=== PATIENT | female | born 1980 | race Caucasian/White ===

== ENCOUNTER → 2019-08-05 | Outpatient (CLI) | payer OTHER ==
[~2019-08-05] MED LIST: PREN-2 PO
== END | disposition home or self-care (01) ==
LOC: CFH 10:38
PROVIDERS: ATTEND Obstetrics & Gynecology
DX: Z12.31 Encounter for screening mammogram for malignant neoplasm of breast (principal)
CPT/HCPCS: 77063; 77067

== ENCOUNTER → 2020-09-08 | Outpatient (CLI) | payer OTHER | END | disposition home or self-care (01) | LOC: CFH 07:46 | PROVIDERS: ATTEND Obstetrics & Gynecology | DX: Z12.31 Encounter for screening mammogram for malignant neoplasm of breast (principal); R92.1 Mammographic calcification found on diagnostic imaging of breast | CPT/HCPCS: 77063; 77067 ==